=== PATIENT | female | born 1985 | race Caucasian/White ===

== ENCOUNTER 2017-06-17 10:29 | Emergency (ER) | payer MEDICAID ==
[~2017-06-17] VITALS: Ht 149.9 cm; Wt 71.5 kg
[2017-06-17 10:34] VITALS: Ht 149.9 cm; Wt 71.5 kg
[2017-06-17] MEDS ORDERED: morphine 4 MG/ML VIAL IV STA (11:08)
[2017-06-17] MEDS ORDERED: SOD CHLORIDE 0.9% 1,000 ML IV STA (11:08)
[2017-06-17] MEDS ORDERED: ONDANSETRON 4 MG INJ IV STA (11:08)
--- NOTE | 2017-06-17 11:17 | ERD ---
ER Documentation Chief Complaint Date/Time DATE: 06/17/17 TIME: 11:13 Chief Complaint 8/10 abd pain with nausea x 4 days HPI 31-year-old female with a history of acid reflux disease presents emergency department for complaints of 9 out of 10 diffuse burning abdominal pain with associated nausea and vomiting 4 days. Patient states the pain initially began while she was resting at home and gradually worsened. She states the pain has been constant for the past day. She notes one episode of vomiting today and 2 episodes yesterday. She denies any fever or chills. She denies any dysuria, hematuria, cough, sore throat, headache, vaginal discharge. She reports prior episodes of epigastric burning abdominal pain when she was for which she was diagnosed with GERD. Last menstrual period was 4 days ago and normal for her. ROS All systems reviewed and are negative except as per history of present illness. Medications Home Meds No Active Prescriptions or Reported Meds Allergies Allergies: Coded Allergies: No Known Drug Allergy (Unverified Allergy, Unknown, 06/17/17) PMhx/Soc History of Surgery: No Anesthesia Reaction: No Hx Neurological Disorder: No Hx Respiratory Disorders: No Hx Cardiac Disorders: No Hx Psychiatric Problems: No Hx Miscellaneous Medical Probl: No Hx Alcohol Use: Yes Hx Substance Use: No Hx Tobacco Use: No Physical Exam Vitals Vital Signs Date Time Temp Pulse Resp B/P Pulse Ox O2 Delivery O2 Flow Rate FiO2 06/17/17 10:34 98.2 63 18 128/83 99 Physical Exam Const: Well-developed, well-nourished, in mild distress Head: Atraumatic Eyes: Normal Conjunctiva ENT: Normal External Ears, Nose and Mouth. Neck: Full range of motion..~ No meningismus. Resp: Clear to auscultation bilaterally Cardio: Regular rate and rhythm, no murmurs Abd: Soft, normal bowel sounds, diffusely tender to upper and lower quadrants as well as midline. Positive rebound tenderness. No peritoneal signs Skin: No petechiae or rashes Back: No midline or flank tenderness Ext: No cyanosis, or edema Neur: Awake and alert Psych: Normal Mood and Affect Result Diagram: 06/17/17 1135 06/17/17 1135 Results 24 hrs Laboratory Tests Test 06/17/17 11:30 06/17/17 11:35 Urine Color YELLOW Urine Clarity CLEAR Urine pH 5.0 Urine Specific [place] 1.016 Urine Ketones NEGATIVEmg/dL Urine Nitrite POSITIVEmg/dL Urine Bilirubin NEGATIVEmg/dL Urine Urobilinogen NEGATIVEmg/dL Urine Leukocyte Esterase 1+Patience/ul Urine Microscopic RBC 1/HPF Urine Microscopic WBC 9/HPF Urine Bacteria FEW/HPF Urine Hemoglobin 3+mg/dL Urine Glucose NEGATIVEmg/dL Urine Total Protein NEGATIVEmg/dl White Blood Count 5.510^3/ul Red Blood Count 3.7010^6/ul Hemoglobin 11.8g/dl Hematocrit 34.4% Mean Corpuscular Volume 93.0fl Mean Corpuscular Hemoglobin 31.9pg Mean Corpuscular Hemoglobin Concent 34.3g/dl Red Cell Distribution Width 11.9% Platelet Count 52927^3/UL Mean Platelet Volume 8.2fl Neutrophils % 52.5% Lymphocytes % 38.1% Monocytes % 7.1% Eosinophils % 1.6% Basophils % 0.5% Nucleated Red Blood Cells % 0.0/100WBC Neutrophils # 2.910^3/ul Lymphocytes # 2.110^3/ul Monocytes # 0.410^3/ul Eosinophils # 0.110^3/ul Basophils # 0.010^3/ul Nucleated Red Blood Cells # 0.010^3/ul Sodium Level 142mmol/L Potassium Level 4.0mmol/L Chloride Level 101mmol/L Carbon Dioxide Level 24mmol/L Anion Gap 21 Blood Urea Nitrogen 14mg/dl Creatinine 0.61mg/dl Glucose Level 94mg/dl Calcium Level 10.1mg/dl Total Bilirubin 0.1mg/dl Direct Bilirubin 0.00mg/dl Indirect Bilirubin 0.1mg/dl Aspartate Amino Transf (AST/SGOT) 35IU/L Alanine Aminotransferase (ALT/SGPT) 37IU/L Alkaline Phosphatase 73IU/L Total Protein 8.3g/dl Albumin 4.6g/dl Globulin 3.70g/dl Albumin/Globulin Ratio 1.24 Lipase 119U/L Serum HCG, Qualitative NEGATIVE Current Medications Medications (Trade) Dose Ordered Sig/Rosaura Route PRN Reason Start Time Stop Time Status Last Admin Dose Admin Sodium Chloride (NS) 1,000 ml @ 1,000 mls/hr Q1H STAT IV 06/17/17 11:08 06/17/17 12:07 DC 06/17/17 11:42 Morphine Sulfate (morphine) 4 mg ONCE STAT IV 06/17/17 11:08 06/17/17 11:11 DC 06/17/17 11:42 Ondansetron HCl (Zofran Inj) 4 mg ONCE STAT IV 06/17/17 11:08 06/17/17 11:11 DC 06/17/17 11:42 Famotidine (Pepcid Iv) 20 mg ONCE ONCE IV 06/17/17 12:30 06/17/17 12:31 DC 06/17/17 13:09 Procedures/MDM PROCEDURE: CT Abdomen and Pelvis without contrast. CLINICAL INDICATION: Abdominal pain. Nausea. TECHNIQUE: CT scan of the abdomen and pelvis without contrast was performed on a multi-slice CT scanner without intravenous contrast. Coronal and sagittal reformatted images were obtained from the axial source images. Images were reviewed on a high-resolution PACS workstation. One or more of the following does reduction techniques were used: Automated exposure control; adjustment of the mA and/or kV according to patient size; use of the aorta of reconstruction technique. The total exam CTDI equals 11.3 mGy and the total exam DLP equals 643.75 mGy-cm. COMPARISON: None available. FINDINGS: There is calcified granuloma in the left posterior lower lobe. The lung bases are otherwise clear. Heart size is normal, and there is no evidence of pericardial thickening or effusion. The liver, spleen, and pancreas are normal given limitations of a noncontrast CT examination. The gallbladder is normal. The adrenal glands are normal. The kidneys without renal calculus or hydronephrosis. The aorta is of normal caliber. There is subtle calcifications of the left iliac arterial system. There is no retroperitoneal lymph node enlargment. There is no evidence of large or small bowel obstruction. The majority of a normal appendix is identified.. No free fluid or fluid collections are identified. No inflammatory changes are seen. The uterus is present. There is mild nonspecific inflammatory change in the anterior and left pelvic fat potentially adjacent to the left ovary. The proximal sigmoid colon is also in this region. No enlarged pelvic sidewall lymph nodes are seen. The bladder is within normal limits. No free fluid is identified. The inguinal regions are unremarkable. The bones are intact. IMPRESSION: 1. Mild nonspecific inflammatory changes in the anterior and more so in the left pelvic fat. This finding may be related to the left ovary, though the proximal sigmoid colon is also in this region. Consider further evaluation with contrast enhanced CT scan versus pelvic ultrasound as clinically indicated. 2. Atherosclerotic vascular disease. 3. Old granulomatous disease. RPTAT: AA .Josh Catalan MD, MD Date Time Electronically viewed and signed by .Josh Catalan MD, MD on 2016 13:05 .B/ CC: CORA GARVIN PA-C This is an otherwise healthy 31-year-old female who presents the emergency department for complaints of constant 9 out of 10 diffuse abdominal pain with nausea and vomiting 4 days. Patient denies history of fever or chills. Upon arrival patient afebrile, non-tachycardic normotensive and non-hypoxic. Physical exam with evidence of diffuse tenderness to palpation of the anterior abdomen with positive rebound tenderness. CBC showed no evidence of systemic infection or severe anemia. CMP showed no evidence of electrolyte abnormalities, severe acidosis, alkalosis , renal failure, or liver disease. Lipase showed no evidence of acute pancreatitis. UA with evidence of nitrites and leukoesterase. Qualitative hCG negative. Patient received a bolus of fluids as well as pain and nausea medication while in the emergency department and reports significant improvement of symptoms. CT with evidence of mild nonspecific inflammatory changes in the left pelvic region. Upon reassessment patient nontender to this area. Other findings include atherosclerotic vascular disease and granulomatous disease in the lung. History and physical exam consistent with abdominal pain likely due to urinary tract infection. Patient does not complain of back pain or exhibit flank tenderness. Low suspicion for pyelonephritis at this time. CAT scan without evidence of appendicitis, cholecystitis, renal stone, bowel obstruction, or other surgical abdomen. Patient was resting at home when pain symptoms began and reports a gradual increase in symptoms, therefore low suspicion for acute ovarian torsion. Additionally low suspicion for normal or ectopic . Patient to begin antibiotics and will be provided with pain medication. Follow- up with primary care physician in 1-2 days. Strict return precautions discussed. Based on patient's history of present illness and physical examination the decision was made to discharge. The patient was re-evaluated after ED treatment and stabilizing measures, and symptoms have improved. There is no evidence of life threatening injuries or illnesses at this time. On re-examination, patient resting in no distress, stable vital signs, reports feeling better and safe for discharge with outpatient follow up with PMD in 1-2 days. Patient given return precautions. Patient expressed understanding of and agreement with plan. Departure Diagnosis: Primary Impression: Abdominal pain Abdominal location: unspecified location Qualified Code: R10.9 - Abdominal pain, unspecified location Additional Impressions: Nausea UTI (urinary tract infection) Urinary tract infection type: acute cystitis Hematuria presence: with hematuria Qualified Code: N30.01 - Acute cystitis with hematuria CORA GARVIN PA-C Jun 17, 2017 11:17
[2017-06-17 11:47] LABS: ADD UMIC YES; UR ASCORBIC ACID NEGATIVE (NEGATIVE); UR BACTERIA FEW /HPF (NONE SEEN); UR BILIRUBIN (Dip) NEGATIVE (NEGATIVE); UR BLOOD (Dip) 3+ mg/dL (NEGATIVE); UR CLARITY CLEAR (CLEAR); UR COLOR YELLOW (YELLOW); UR GLUCOSE (Dip) NEGATIVE (NEGATIVE); UR KETONES (Dip) NEGATIVE (NEGATIVE); UR LEUKOCYTE ESTERASE (Dip) 1+ Leu/ul (NEGATIVE); UR NITRITE (Dip) POSITIVE (NEGATIVE); UR RBC 1 /HPF (0-5); UR SPECIFIC GRAVITY (Dip) 1.016 (1.003-1.030); UR TOTAL PROTEIN (Dip) NEGATIVE (NEGATIVE); UR UROBILINOGEN (Dip) NEGATIVE (NEGATIVE)
[2017-06-17 11:49] LABS: BASOPHILS % 0.5 % (0.0-2.0); EOSINOPHILS # 0.1 10^3/ul (0.0-0.5); EOSINOPHILS % 1.6 % (0.0-7.0); HEMATOCRIT 34.4 % (37.0-47.0); HEMOGLOBIN 11.8 g/dl (12.0-16.0); LYMPHOCYTES # 2.1 10^3/ul (0.8-2.9); LYMPHOCYTES % 38.1 % (15.0-51.0); MEAN CORPUSCULAR HEMOGLOBIN 31.9 pg (29.0-33.0); MEAN CORPUSCULAR HGB CONC 34.3 g/dl (32.0-37.0); MEAN PLATELET VOLUME 8.2 fl (7.4-10.4); MONOCYTE # 0.4 10^3/ul (0.3-0.9); MONOCYTES % 7.1 % (0.0-11.0); NEUTROPHIL # 2.9 10^3/ul (1.6-7.5); NEUTROPHILS % 52.5 % (39.0-77.0); PLATELET COUNT 300 10^3/UL (140-415); RED CELL DISTRIBUTION WIDTH 11.9 % (11.5-14.5); WHITE BLOOD COUNT 5.5 10^3/ul (4.8-10.8)
[2017-06-17 12:08] LABS: BILIRUBIN,INDIRECT 0.1 mg/dl (0-1.1); CALCIUM 10.1 mg/dl (8.4-10.2); CREATININE 0.61 mg/dl (0.44-1.00)
[2017-06-17 12:09] LABS: ALBUMIN 4.6 g/dl (3.3-4.9); ALBUMIN/GLOBULIN RATIO 1.24; BILIRUBIN,TOTAL 0.1 mg/dl (0.2-1.3); TOTAL PROTEIN 8.3 g/dl (6.1-8.1)
[2017-06-17] MEDS ORDERED: FAMOTIDINE 20 MG INJ IV ONE (12:30)
--- NOTE | 2017-06-17 13:05 | RADRPT ---
PROCEDURE: CT Abdomen and Pelvis without contrast. CLINICAL INDICATION: Abdominal pain. Nausea. TECHNIQUE: CT scan of the abdomen and pelvis without contrast was performed on a multi-slice CT [facility] without intravenous contrast. Coronal and sagittal reformatted images were obtained from the axial source images. Images were reviewed on a high-resolution PACS workstation. One or more of the following does reduction techniques were used: Automated exposure control; adjustment of the mA an d/or kV according to patient size; use of the aorta of reconstruction technique. The total exam CTD I equals 11.3 mGy and the total exam DLP equals 643.75 mGy-cm. COMPARISON: None available. FINDINGS: There is calcified granuloma in the left posterior lower lobe. The lung bases are otherwise clear. Heart size is normal, and there is no evidence of pericardial thickening or effusion. The liver, spleen, and pancreas are normal given limitations of a noncontrast CT examination. The g allbladder is normal. The adrenal glands are normal. The kidneys without renal calculus or hydronephrosis. The aorta is of normal caliber. There is subtle calcifications of the left iliac arterial system. T here is no retroperitoneal lymph node enlargment. There is no evidence of large or small bowel obstruction. The majority of a normal appendix is iden tified.. No free fluid or fluid collections are identified. No inflammatory changes are seen. The uterus is present. There is mild nonspecific inflammatory change in the anterior and left pelvi c fat potentially adjacent to the left ovary. The proximal sigmoid colon is also in this region. N o enlarged pelvic sidewall lymph nodes are seen. The bladder is within normal limits. No free flui d is identified. The inguinal regions are unremarkable. The bones are intact. IMPRESSION: 1. Mild nonspecific inflammatory changes in the anterior and more so in the left pelvic fat. This f inding may be related to the left ovary, though the proximal sigmoid colon is also in this region. Consider further evaluation with contrast enhanced CT scan versus pelvic ultrasound as clinically in dicated. 2. Atherosclerotic vascular disease. 3. Old granulomatous disease. RPTAT: AA .Josh Catalan MD, MD Date Time Electronically viewed and signed by .Josh Catalan MD, on 06/17/2017 13:05 .B/
[2017-06-17] MEDS ORDERED: NAPR-260 PO (13:28)
[2017-06-17] MEDS ORDERED: CEPH500C PO (13:28)
[2017-06-17] MEDS ORDERED: HYDR-906 PO (13:28)
[2017-06-17] MEDS ORDERED: RANI150T9 PO (13:29)
[2017-06-17 13:45] VITALS: BP 112/67; PULSE 67; RESP 16; TEMP 98.6
== END 2017-06-17 13:46 | disposition home or self-care (01) ==
LOC: FTE 10:29
DX: R10.84 Generalized abdominal pain (principal); R11.0 Nausea; N30.01 Acute cystitis with hematuria; R10.2 Pelvic and perineal pain
CPT/HCPCS: 36415; 74176; 80053; 81001; 83690; 84703; 85025; 96361; 96374; 96375; J2270; J2405; J7030; Z7502; Z7610

== ENCOUNTER 2018-09-01 10:07 | Emergency (ER) | END 2018-09-01 12:11 | disposition home or self-care (01) ==

== ENCOUNTER 2019-03-04 09:57 | Emergency (ER) | payer OTHER ==
[~2019-03-04] VITALS: Ht 154.9 cm; Wt 74.0 kg
[~2019-03-04 09:57] MED LIST: CEPH500C PO; CIPR-193 PO; HYDR-4011 PO; NAPR-985 PO; ONDA4TAB13 PO; RANI150T35 PO
[2019-03-04 10:01] VITALS: Ht 154.9 cm; Wt 74.0 kg
[2019-03-04] MEDS ORDERED: SODIUM CHLORIDE 0.9% 1L BAG IV* STA (11:24)
[2019-03-04] MEDS ORDERED: KETOROLAC 30 MG INJ IV STA (11:24)
[2019-03-04] MEDS ORDERED: ONDANSETRON 4 MG INJ IV STA (11:24)
[2019-03-04] MEDS ORDERED: CEFTRIAXONE 1 GM/50 ML (PMX) 50 ML IVPB ONE (13:00)
[2019-03-04] MEDS ORDERED: ONDA8TAB14 PO (13:38)
[2019-03-04] MEDS ORDERED: IBUP-1542 PO (13:38)
[2019-03-04] MEDS ORDERED: CIPR500T4 PO (13:38)
--- NOTE | 2019-03-04 13:40 | ERD ---
ER Documentation Chief Complaint Chief Complaint pt bib self with c/o fever, headache, flank pain for a few days HPI 33-year-old female presents with bitemporal headache, right flank pain and fever for last 3 days. She has dysuria as well. She denies any significant anterior abdominal pain. She denies . ROS All systems reviewed and are negative except as per history of present illness. Medications Home Meds Active Scripts Ondansetron (Ondansetron Odt) 8 Mg Tab.rapdis, 8 MG PO Q6H PRN for NAUSEA AND/OR VOMITING, #10 TAB Prov:ARLET MEDLEY MD 03/04/19 Ibuprofen* (Motrin*) 600 Mg Tab, 600 MG PO Q6, #20 TAB Prov:ARLET MEDLEY MD 03/04/19 Ciprofloxacin Hcl* (Ciprofloxacin Hcl*) 500 Mg Tablet, 500 MG PO BID for 10 Days, #20 TAB Prov:ARLET MEDLEY MD 03/04/19 Ondansetron Hcl* (Zofran*) 4 Mg Tab, 4 MG PO Q6H PRN for NAUSEA AND OR VOMITING, #12 TAB Prov:KUSH STUBBS MD 09/01/18 Ciprofloxacin Hcl* (Ciprofloxacin Hcl*) 250 Mg Tablet, 250 MG PO BID for 5 Days, #10 TAB Prov:KUSH STUBBS MD 09/01/18 Ranitidine Hcl* (Zantac*) 150 Mg Tablet, 150 MG PO BID PRN for EPIGASTRIC PAIN, #30 TAB Prov:CORA GARVIN PA-C 06/17/17 Cephalexin* (Cephalexin*) 500 Mg Capsule, 500 MG PO Q8, #21 CAP Prov:CORA GARVIN PA-C 06/17/17 Naproxen* (Naprosyn*) 500 Mg Tablet, 500 MG PO BID for 7 Days, TAB Prov:CORA GARVIN PA-C 06/17/17 Hydrocodone/Acetaminophen ([place] 5-325 Tablet) 1 Each Tablet, 1 TAB PO Q6H PRN for PAIN, #7 TAB Prov:CORA GARVIN PA-C 06/17/17 Allergies Allergies: Coded Allergies: No Known Drug Allergy (Unverified Allergy, Unknown, 7/26/17) PMhx/Soc History of Surgery: No Anesthesia Reaction: No Hx Neurological Disorder: No Hx Respiratory Disorders: No Hx Cardiac Disorders: No Hx Psychiatric Problems: No Hx Miscellaneous Medical Probl: No Hx Alcohol Use: No Hx Substance Use: No Hx Tobacco Use: No FmHx Family History: No diabetes, No coronary disease, No other Physical Exam Vitals Vital Signs Date Temp Pulse Resp B/P (MAP) Pulse Ox O2 O2 Flow FiO2 Time Delivery Rate 03/04/19 98.9 69 17 108/68 99 Room Air 13:39 (81) 03/04/19 101.7 116 18 141/83 99 10:01 (102) Physical Exam Const: No acute distress Head: Atraumatic Eyes: Normal Conjunctiva ENT: Normal External Ears, Nose and Mouth. Neck: Full range of motion. No meningismus. Resp: Clear to auscultation bilaterally Cardio: Regular rate and rhythm, no murmurs Abd: Soft, non tender, non distended. Normal bowel sounds Skin: No petechiae or rashes Back: No midline tenderness. Mild right CVA tenderness. No change at McBurney's point no Rios sign. Ext: No cyanosis, or edema Neur: Awake and alert Psych: Normal Mood and Affect Result Diagram: 03/04/19 1207 03/04/19 1207 Results 24 hrs Laboratory Tests Test 03/04/19 12:07 03/04/19 12:10 White Blood Count 12.3 10^3/ul Red Blood Count 4.18 10^6/ul Hemoglobin 11.5 g/dl Hematocrit 36.2 % Mean Corpuscular Volume 86.6 fl Mean Corpuscular Hemoglobin 27.5 pg Mean Corpuscular Hemoglobin Concent 31.8 g/dl Red Cell Distribution Width 14.2 % Platelet Count 348 10^3/UL Mean Platelet Volume 8.3 fl Immature Granulocytes % 0.600 % Neutrophils % 72.3 % Lymphocytes % 18.4 % Monocytes % 8.2 % Eosinophils % 0.0 % Basophils % 0.5 % Nucleated Red Blood Cells % 0.0 /100WBC Immature Granulocytes # 0.070 10^3/ul Neutrophils # 8.9 10^3/ul Lymphocytes # 2.3 10^3/ul Monocytes # 1.0 10^3/ul Eosinophils # 0.0 10^3/ul Basophils # 0.1 10^3/ul Nucleated Red Blood Cells # 0.0 10^3/ul Urine Color MIKE Urine Clarity CLOUDY Urine pH 5.0 Urine Specific [place] 1.016 Urine Ketones NEGATIVE mg/dL Urine Nitrite POSITIVE mg/dL Urine Bilirubin NEGATIVE mg/dL Urine Urobilinogen NEGATIVE mg/dL Urine Leukocyte Esterase 3+ Patience/ul Urine Microscopic RBC 6 /HPF Urine Microscopic WBC 152 /HPF Urine Squamous Epithelial Cells FEW /HPF Urine Bacteria FEW /HPF Urine Mucus FEW /HPF Urine Hemoglobin NEGATIVE mg/dL Urine Glucose NEGATIVE mg/dL Urine Total Protein NEGATIVE mg/dl Sodium Level 138 mmol/L Potassium Level 4.4 mmol/L Chloride Level 99 mmol/L Carbon Dioxide Level 27 mmol/L Anion Gap 12 Blood Urea Nitrogen 11 mg/dl Creatinine 0.65 mg/dl Est Glomerular Filtrat Rate mL/min > 60 mL/min Glucose Level 113 mg/dl Calcium Level 10.1 mg/dl Total Bilirubin 0.5 mg/dl Direct Bilirubin 0.00 mg/dl Indirect Bilirubin 0.5 mg/dl Aspartate Amino Transf (AST/SGOT) 21 IU/L Alanine Aminotransferase (ALT/SGPT) 10 IU/L Alkaline Phosphatase 77 IU/L Total Protein 8.6 g/dl Albumin 4.8 g/dl Globulin 3.80 g/dl Albumin/Globulin Ratio 1.26 POC Venous Lactate 1.2 mmol/L POC Beta HCG, Qualitative NEGATIVE Current Medications Medications Dose Sig/Rosaura Start Time Status Last (Trade) Ordered Route PRN Stop Time Admin Dose Reason Admin Sodium 2,220 ml BOLUS OVER 2 03/04/19 DC 03/04/19 Chloride HOURS STAT 11: 12:15 (NS) IV* 03/04/19 11:27 Ketorolac 30 mg ONCE STAT 03/04/19 DC 03/04/19 Tromethamine IV 11:24 12:15 (Toradol) 03/04/19 11:27 Ondansetron 4 mg ONCE STAT 03/04/19 DC 03/04/19 HCl (Zofran IV 11: 12:15 Inj) 03/04/19 11:27 Ceftriaxone 50 ml @ ONCE ONCE 03/04/19 DC 03/04/19 Sodium 100 mls/hr IVPB 13:00 12:48 03/04/19 13:29 Procedures/MDM Patient initially meets SIRS criteria .urine shows leukocyte esterase, nitrites, white blood cells and red blood cells. HCG is negative. CBC shows a leukocytosis of 12.3 and minimal anemia. Initial lactic acid normal. Patient was given Toradol, Rocephin 1 g IV, Tylenol. Patient was observed till vital signs improved she was given 1 L normal saline IV as well. Patient presents with flank pain, fever, signs of UTI, consistent with pyelonephritis. She has no signs of surgical abdomen, and is well-appearing on serial exam. She will be treated with Cipro, fever control, Zofran, primary care follow-up and return precautions. The patient was stable with no new complaints during the ER course. Clinically, there is no current evidence to suggest meningitis, sepsis, acute abdomen, pneumonia, stroke, acute coronary syndrome, pulmonary embolism, aortic dissection or any other emergent condition appearing to require further evaluation or hospitalization. Patient counseled regarding my diagnostic impression and care plan. Prior to discharge all questions answered. Pt agrees w ith treatment plan and understands strict return precautions. Pt is instructed to follow up with primary care provider within 24-48 hours. Precautionary instructions provided including instructions to return to the ER if not improving or for any worsening or changing symptoms or concerns. Departure Diagnosis: Primary Impression: UTI (urinary tract infection) Urinary tract infection type: acute cystitis Hematuria presence: without hematuria Qualified Codes: N30.00 - Acute cystitis without hematuria Additional Impression: Fever Fever type: unspecified Qualified Codes: R50.9 - Fever, unspecified Condition: Stable Patient Instructions: Understanding Urinary Tract Infections (UTIs), Fever Control (Adult), Pyelonephritis, Female (Adult) Additional Instructions: TMA MUCH AGUA. TIENE INFECCION EN ORINA. Cheque otro vez con elena doctor primario en el proximo greer or regresa para mas o nueva simptomas. ARLET MEDLEY MD Mar 04, 2019 13:40
[2019-03-04 14:11] VITALS: BP 112/61; PULSE 81; RESP 18
== END 2019-03-04 14:46 | disposition home or self-care (01) ==
LOC: FTE 09:57
DX: N30.00 Acute cystitis without hematuria (principal)
CPT/HCPCS: 36415; 80053; 81001; 81025; 83605; 85025; 87040; 87086; 96361; 96365; 96375; J0696; J1885; J2405; J7030; Z7502